=== PATIENT | male | born 1995 | race African-American/Black ===

== ENCOUNTER 2022-01-18 06:59 | Day surgery (SDC) | payer BC, SELFPAY ==
[2022-01-18] VITALS (12 sets, daily range): BP systolic 117–141; BP diastolic 79–100; PULSE 54–79; RESP 14–16; TEMP 36.2–37.3; O2SAT 98–100; BMI 22.3
[2022-01-18] MEDS: LACTATED RINGERS 1000 ML 1,000 ML 100 ML IV ×2 (06:30→08:14)
[2022-01-18] MEDS: CEFAZOLIN 1 GM inj IVP (08:05)
[2022-01-18] MEDS: BUPIVACAINE 0.25% 30 ML INJECTION (09:00)
--- NOTE | 2022-01-18 09:14 | P.GSOP_ITS ---
Operative Note Date of procedure: 01/18/22 Type of Procedure: 1. Open left inguinal hernia repair with mesh. Procedure Description: After discussing the risks and benefits of the procedure, the patient signed informed consent.? The operative site was marked and the patient was brought to the operating room and placed on the operating table in supine position.? Care was taken to pad the patient's pressure points.?? The patient was then intubated by anesthesia.?? The operative site was then prepped and draped in the usual sterile fashion.? A time-out was then performed. Surgical site was prepped and draped in sterile fashion. Site of the incision w as marked with a marking pen and local anesthetic was injected. An oblique incision was made just above and medial to the left inguinal ligament. Subcutaneous tissue was dissected to external obliques. Superficial subcutaneous vascular branches were clamped, divided and tied with 3-0 Vicryl ties. Small incision was made through the external oblique aponeurosis with scalpel. I then used Metzenbaum scissors to dissect under external obliques and extend my incision. Mosquito clamps were placed on the edges of external oblique exposing the inguinal floor. The left Ilioinguinal nerve was identified and was going through the plain of dissection. The nerve was divided proximally and distally and a 3 cm segment of it was excised. This was not sent to pathology. I then identified the spermatic cord and the hernia sac. I bluntly dissected subcutaneous tissues in order to place Lou drain around the cord structures. Cremasteric fibers were peeled off and dissected off the hernia sac and cord structures. This was an indirect hernia. The hernia sac was from the spermatic cord bluntly and with cautery. The indirect hernia sac was incised and examined from the inside. No int raabdominal organs were incarcerated in the hernia sac. The medial wall of the sac was fatty. A stitch using 3-0 Vicryl was placed near the base of the hernia sac through the sac and the hernia sac tied off. Hernia sac was then excised and not sent to pathology. The cut edge of the hernia sac was then oversewn with a running 3-0 Vicryl suture. This was then pushed into preperitoneal space thro ugh the internal ring. Surgical field was examined for bleeding and hemostasis was achieved with cautery and Vicryl ties. A Bard mesh onlay was also used for hernia repair. The mesh onlay was sutured in place with interrupted 0-0 Neurolon sutures to the conjoint tendon medially and shelving edge laterally, pubic tubercle inferiorly. Simple interrupted sutures were placed using 0-0 Neurolon at the base of internal inguinal ring making it only large enough to fit a tip of one finger through. Spermatic cord was placed back into scrotum. Costilla drain was removed. External oblique aponeurosis was closed with a running 3-0 Vicryl. Additional local anesthetic was injected into subcutaneous tissues. Chip's fascia and subcutaneous tissue was re-approximated with interrupted Vicryl stitches. Skin incision was closed with 4-0 Monocryl subcuticular stitch. Steri strips and sterile dressing were applied over incision. All counts were correct at the end of the case. Patient tolerated this procedure well and was transferred to PACU in stable condition. Findings: Indirect hernia sac. Implants: Bard mesh onlay. Anesthesia: GETA Surgeon: Сергей Sutton MD Estimated blood loss (mL): 5 Condition: stable Disposition: PACU
--- NOTE | 2022-01-18 09:42 | W.ANESCHARGE ---
Anesthesia Charges Start Date/Time Anesthesia Start Date: 01/18/22 Anesthesia Start Time: 07:56 Stop Date/Time Anesthesia Stop Date: 01/18/22 Anesthesia Stop Time: 09:31 Summary Emergency: No
--- NOTE | 2022-01-18 10:55 | W.ANESCHARGE ---
Anesthesia Charges Start Date/Time Anesthesia Start Date: 01/18/22 Anesthesia Start Time: 07:56 Stop Date/Time Anesthesia Stop Date: 01/18/22 Anesthesia Stop Time: 09:31 Summary Emergency: No
[2022-01-18] MEDS: HYDROCODONE-ACETAMIN 5-325 MG 1 TAB PO (11:05)
== END 2022-01-18 11:36 | disposition home or self-care (01) ==
PROVIDERS: Visit Provider Surgery
PROC: (CPT 49505; principal; 2022-01-18 08:00)
DX: K40.90 Unilateral inguinal hernia, without obstruction or gangrene, not specified as recurrent (principal)
CPT/HCPCS: 49505; 00830; A9270; C1781; J0330; J0690; J1100; J1170; J2250; J2405; J2704; J3010; J3490; J7120